=== PATIENT | male | born 1960 | race Caucasian/White ===

== ENCOUNTER 2017-10-08 19:19 | Inpatient (IN) ==
--- NOTE | 2017-10-08 20:37 | Emergency Department Note ---
Disposition Clinical Impression: Abdominal pain Qualifiers: Abdominal location: generalized Qualified Code(s): R10.84 - Generalized abdominal pain Disposition: Still a Patient Condition: Fair Referrals: Katharina Hoover MD [Primary Care Provider] - Forms: ED Satisfaction Letter, Work/School Release General Adult HPI - General Chief complaint: ED Abdominal Pain Stated complaint: abd pain Time Seen by Provider: 10/08/17 20:11 Source: patient Mode of arrival: ambulatory Limitations: no limitations Nursing Notes Reviewed: Yes Vital Signs Reviewed: Yes - History of Present Illness HPI Narrative: 57-year-old male with significant past medical history of multiple acute pancreatitis episodes presenting to the emergency Department chief complaint epigastric pain. Patient states 4 days ago he drink a large amount of alcohol. Afterwards he had severe epigastric pain that radiated up into his throat and down into his abdomen. He had multiple episodes of nonbloody nonbilious vomiting. Patient has not had vomiting in the past 48 hours. He states his abdominal pain is progressively getting worse. He was concerned because he has had pancreatitis in the past and this was what felt like previously. Patient has not been able to eat or drink anything due to pain. He has had decreased urination throughout the day as well. Patient denies any chest pain or shortness of breath. Denies any fevers at home or sick contacts. Pain Scale: 10 - Related Data Previous Rx's Medication Instructions Recorded Acetaminophen w/Cod 300-30 mg 1 each PO Q6HR PRN #10 tablet 12/12/16 [Tylenol w/Codeine #3] Amoxicillin 875 mg PO BID #20 tablet 12/12/16 Ibuprofen [Motrin] 600 mg PO Q6HR PRN #20 tab 12/12/16 Allergies Allergy/AdvReac Type Severity Reaction Status Date / Time No Known Allergies Allergy Verified 11/23/16 09:13 All systems ED: reviewed and negative except as stated. Gastrointestinal: Reports: abdominal pain, nausea, vomiting Past Medical History - Past Medical History Attestation: Yes The following information was validated with the patient. Medical history: Reports: GERD Surgical history: Reports: herniorrhaphy Psychiatric history: Reports: anxiety, depression - Social History Smoking Status: Current some day smoker Smokeless Tobacco Status: No Alcohol use: Reports: occasionally, heavy Drug use: Reports: marijuana Physical Exam - General Limitations: no limitations General appearance: alert, in no apparent distress - Head Head exam: atraumatic, normocephalic, normal inspection - Eye Eye exam: Present: normal appearance. Absent: scleral icterus, conjunctival injection - ENT ENT exam: mucous membranes dry - Neck Neck exam: Present: normal inspection, full ROM. Absent: tenderness, meningismus - Chest Chest inspection: Present: normal inspection, symmetric chest wall rise. Absent : tenderness, rash - Respiratory Respiratory exam: Present: normal lung sounds bilaterally. Absent: respiratory distress, wheezes - Cardiovascular Cardiovascular exam: Present: normal rhythm, tachycardia, normal heart sounds - Abdominal Exam Abdominal exam: Present: soft, tenderness. Absent: distention, guarding, rebound, rigidity Abdominal tenderness: Present: epigastrium, diffuse, moderate - Extremities Exam Extremities exam: Present: normal inspection, full ROM - Neurological Exam Neurological exam: Present: alert, oriented X3 - Psychiatric Psychiatric exam: Present: normal affect, normal mood - Skin Skin exam: Present: warm, intact Course Course Narrative: 57-year-old male presenting to the emergency department For epigastric pain. Upon presentation patient is tachycardic but otherwise vital signs stable. Patient is extremely dry on exam. Patient has moderate to severe abdominal exam diffuse but mostly located in the epigastric region. Concern for pancreatitis or other intra-abdominal pathology at this time. We will provide the patient with a liter of fluid, laboratory analysis including CBC, CMP and lipase along with a CT of the abdomen and pelvis. Patient is alert and oriented 3 in the room. Patient's disposition pending results. Patient agrees with this plan. We will plan to sign the patient out to Dr. Torrez Vital Signs Temperature 97.6 F 10/08/17 19:27 Pulse Rate 120 10/08/17 19:27 Respiratory Rate 18 10/08/17 19:27 Blood Pressure 106/65 10/08/17 19:27 O2 Sat by Pulse Oximetry 99 10/08/17 19:27 Temperature 97.6 F 10/08/17 19:27 Pulse Rate 120 10/08/17 19:27 Respiratory Rate 18 10/08/17 19:27 Blood Pressure 106/65 10/08/17 19:27 O2 Sat by Pulse Oximetry 99 10/08/17 19:27 Oxygen Delivery Oxygen Delivery Room Air Medical Decision Making - Lab Data Result diagrams: 10/08/17 20:49 Lab Results 10/08/17 Range/Units 20:49 WBC 13.1 H (4.3-11.1) K/mcL RBC 6.52 H (4.19-5.50) M/mcL Hgb 20.3 H (12.9-16.9) g/dL Hct 58.5 H (37.5-50.1) % MCV 89.7 (83.0-100.0) fL MCH 31.1 (28.0-33.3) pg MCHC 34.7 (31.6-35.5) g/dL RDW 12.4 (11.5-14.5) % Plt Count 362 (140-400) K/mcL MPV 9.5 (9.4-12.4) fL Immature Gran % 0.5 (0-4) % Seg Neutrophils % 72.9 % Lymphocytes % 17.8 % Monocytes % 8.4 % Eosinophils % 0.1 % Basophils % 0.3 % Neutrophils # 9.5 H (1.6-8.9) K/mcL Lymphocytes # 2.3 (0.6-4.6) K/mcL Monocytes # 1.1 (0.0-1.3) K/mcL Eosinophils # 0.0 (0.0-0.6) K/mcL Basophils # 0.0 (0.0-0.2) K/mcL
--- NOTE | 2017-10-08 20:37 | Emergency Department Note ---
Disposition Clinical Impression: Abdominal pain Qualifiers: Abdominal location: generalized Qualified Code(s): R10.84 - Generalized abdominal pain Disposition: Still a Patient Condition: Fair Referrals: Kathairna Hoover MD [Primary Care Provider] - Time of Disposition: 20:37 General Adult HPI - General Chief complaint: ED Abdominal Pain Stated complaint: abd pain Time Seen by Provider: 10/08/17 20:11 Source: patient Limitations: no limitations - History of Present Illness Pain Scale: 10 - Related Data Previous Rx's Medication Instructions Recorded Acetaminophen w/Cod 300-30 mg 1 each PO Q6HR PRN #10 tablet 12/12/16 [Tylenol w/Codeine #3] Amoxicillin 875 mg PO BID #20 tablet 12/12/16 Ibuprofen [Motrin] 600 mg PO Q6HR PRN #20 tab 12/12/16 Allergies Allergy/AdvReac Type Severity Reaction Status Date / Time No Known Allergies Allergy Verified 11/23/16 09:13 Past Medical History - Past Medical History Medical history: Reports: GERD Surgical history: Reports: herniorrhaphy Psychiatric history: Reports: anxiety, depression - Social History Smoking Status: Current some day smoker Smokeless Tobacco Status: No Alcohol use: Reports: occasionally, heavy Drug use: Reports: marijuana Physical Exam - General Limitations: no limitations General appearance: alert Course - Reevaluation(s) Reevaluation #1: Attestation note I examined this patient and my medical decision-making was reviewed with the [employer]/PA/Advanced Practice Nurse/Resident Physician. I agree with the documented findings, disposition and treatment plan as described except to the extent set forth below. ED attending: Patient's emergency medicine resident Dr. RAMON CARDONA. Please see copy of this note for H&P evaluation and management and ED disposition. We both had independent [id number] time in contact with this patient. Briefly: 57-year-old male presents with diffuse abdominal pelvic pain. Dehydrated tachycardic at 120 diffuse abdominal guarding but no rebound. Patient is afebrile. Labs IV fluid analgesics antiemetics and abdominal pelvic CT are pending. Patient will be signed out to the assuming ED attending Dr. Tyrel Torrez. Please see copy of his note for the remainder of the ED course. Patient signed out in stable condition at 2044 Time: 20:36 Vital Signs Temperature 97.6 F 10/08/17 19:27 Pulse Rate 120 10/08/17 19:27 Respiratory Rate 18 10/08/17 19:27 Blood Pressure 106/65 10/08/17 19:27 O2 Sat by Pulse Oximetry 99 10/08/17 19:27 Temperature 97.6 F 10/08/17 19:27 Pulse Rate 120 10/08/17 19:27 Respiratory Rate 18 10/08/17 19:27 Blood Pressure 106/65 10/08/17 19:27 O2 Sat by Pulse Oximetry 99 10/08/17 19:27 Oxygen Delivery Oxygen Delivery Room Air
[2017-10-08] MEDS ORDERED: Ondansetron 4 MG/2 ML VIAL IVP ONE (20:44)
[2017-10-08] MEDS ORDERED: *HR* FentaNYL (PF) 100 MCG/2 ML VIAL IVP ONE ×2 (20:44→23:15)
[2017-10-08] MEDS ORDERED: 0.9 % Sodium Chloride 1,000 ML IVC ONE ×2 (20:44→23:15)
[2017-10-08 21:00] LABS: Basophils % 0.3 %; Eosinophils % 0.1 %; Hemoglobin 20.3 g/dL (12.9-16.9); Immature Granulocytes % 0.5 % (0-4); Lymphocytes # 2.3 K/mcL (0.6-4.6); Lymphocytes % 17.8 %; Mean Corpuscular HGB Conc 34.7 g/dL (31.6-35.5); Mean Corpuscular Hemoglobin 31.1 pg (28.0-33.3); Mean Corpuscular Volume 89.7 fL (83.0-100.0); Mean Platelet Volume 9.5 fL (9.4-12.4); Monocytes # 1.1 K/mcL (0.0-1.3); Monocytes % 8.4 %; Neutrophils # 9.5 K/mcL (1.6-8.9); Platelet Count 362 K/mcL (140-400); Red Blood Count 6.52 M/mcL (4.19-5.50); Red Cell Distribution Width 12.4 % (11.5-14.5); Segmented Neutrophils % 72.9 %
[2017-10-08 21:01] LABS: Hematocrit 58.5 % (37.5-50.1)
[2017-10-08 21:26] LABS: Albumin 5.6 g/dL (3.5-5.7); Albumin/Globulin Ratio 1.4 (1.1-2.2); Bilirubin,Direct 0.2 mg/dL (0.0-0.2); Bilirubin,Indirect 0.7 mg/dL (0.0-1.2); Bilirubin,Total 0.9 mg/dL (0.3-1.0); Calcium 11.3 mg/dL (8.6-10.3); Globulin 3.9 g/dL (2.4-3.5); Potassium 3.8 mEq/L (3.5-5.1); Total Protein 9.5 g/dL (6.4-8.9)
--- NOTE | 2017-10-09 00:23 | Internal Med History&Physical ---
Date of Encounter: 10/09/17 Time of Encounter: 00:21 Assessment and Plan (1) JAMEEL (acute kidney injury) Current visit: No Status: Resolved IVF hydration dehydration related to GI symptoms trend Cr (2) Hyponatremia Current visit: Yes Status: Acute related to dehydration IVF trend Na (3) Abdominal pain Current visit: Yes Status: Acute no evidence of pancreatitis possible gastoenteritis vs. gastritis will empirically treat for UTI Qualifiers: Abdominal location: generalized Qualified Code(s): R10.84 - Generalized abdominal pain (4) Alcoholism in recovery Current visit: No Status: Chronic CIWA protocol Internal Medicine - H&P: HPI Chief complaint: Abdo pain History of present illness: Mr. Fox is a 57 year old male history of alcoholism in recovery, history of alcohol-induced pancreatitis, who presents with 4 days history of abdominal pain with anorexia. Found to be in acute kidney injury. He developed epigastric pain with radiation down inferiorly to the abdomen, 6 out of 10, associated with diaphoresis and fever low-grade, sharp in character , anorexia has not been eating or drinking too much, associated with 2 day history of nausea and emesis, frequency 7-10 times daily that is bilious in character. He denies any diarrhea He used to have an history of alcoholism and has cut down his alcohol intake. He denies any withdrawal effects when he stops using alcohol. He currently drinks about 4 times a month each with 3-4 glasses of Coke with whiskey. He reports drinking [address]/CT abd pelvis wo no iv no oral IMPRESSION: No acute process demonstrated Past Med Surg Social Fam HX - Past Medical History Medical history: GERD Psychiatric history: anxiety, depression - Past Surgical History Surgical History: herniorrhaphy - Social History Smoking Status: Current some day smoker Smokeless Tobacco Status: No Alcohol use: occasionally, heavy Drug use: marijuana - Family History Father Living Status: Hx Family Cancer: Yes (Brain) Mother Living Status: Still Living Hx Family GI Disorders: No Internal Medicine - H&P: Meds Acetaminophen w/Cod 300-30 mg [Tylenol w/Codeine #3] 1 each PO Q6HR PRN #10 tablet 12/12/16 [Rx] Amoxicillin 875 mg PO BID #20 tablet 12/12/16 [Rx] Ibuprofen [Motrin] 600 mg PO Q6HR PRN #20 tab 12/12/16 [Rx] 3 Allergy/AdvReac Type Severity Reaction Status Date / Time No Known Allergies Allergy Verified 11/23/16 09:13 All Systems PM: A 10-system review of systems was performed and is negative for pertinent findings except as documented above in the HPI. Review of systems: ROS 14 point review of systems reviewed as best as possible given presentation. Pertinent positive or negative as per HPI or otherwise reviewed as negative - Constitutional Vitals: Temp Pulse Resp BP Pulse Ox 97.6 F 120 18 106/65 99 10/08/17 19:27 10/08/17 19:27 10/08/17 19:27 10/08/17 19:27 10/08/17 19:27 Exam: General - AAO x 3 Psych - Appropriate affect/speech. No agitation Eyes - AURELIO. Eye lids intact. No scleral icterus Neuro - No gross peripheral or central neuro deficits on inspection Heart - Sinus. RRR. S1 and S2 present. No added HS/murmurs appreciated. No elevated JVD appreciated. Lung - Adequate air entry b/l, No crackles/wheezes appreciated GI - abdominal discomfort. Soft, non-tender. No guarding or rigidity. No hepatosplenomegaly/ascites. BS+ - No CVA/suprapubic tenderness or palpable bladder distension Skin - Intact. No rash/petechiae/ecchymosis. Warm extremities MSK - Joints with normal ROM. No joint swellings Internal Med - H&P Results - Labs CBC & Chem 7: 10/08/17 20:49 10/08/17 20:49
[2017-10-09] MEDS ORDERED: Naloxone 0.4 MG/ML INJ IVP PRN (00:29)
[2017-10-09] MEDS ORDERED: *HR* Acetaminophen w/Cod 300-30 mg 1 TAB TABLET PO PRN (00:29)
[2017-10-09] MEDS ORDERED: Ibuprofen 600 MG TABLET PO PRN (00:29)
[2017-10-09] MEDS ORDERED: Ondansetron 4 MG/2 ML VIAL IVP PRN (00:31)
[2017-10-09] MEDS: 0.9 % Sodium Chloride 1,000 ML IVC SCH ×4 (01:58→20:13)
[2017-10-09] MEDS: Prochlorperazine 10 MG/2 ML VIAL IVP PRN ×3 (01:59→14:54)
[2017-10-09] MEDS: Pantoprazole 40 MG VIAL IVP SCH ×3 (02:08→20:13)
[2017-10-09] MEDS ORDERED: *HR* FentaNYL (PF) 100 MCG/2 ML VIAL IVP ONE (02:33)
[2017-10-09] MEDS ORDERED: *HR* FentaNYL (PF) 100 MCG/2 ML VIAL ONE (02:36)
[2017-10-09 05:57] LABS: Basophils % 0.4 %; Eosinophils % 0.3 %; Hematocrit 46.5 % (37.5-50.1); Immature Granulocytes % 0.4 % (0-4); Lymphocytes # 2.7 K/mcL (0.6-4.6); Lymphocytes % 27.4 %; Mean Corpuscular HGB Conc 34.4 g/dL (31.6-35.5); Mean Corpuscular Hemoglobin 31.2 pg (28.0-33.3); Mean Corpuscular Volume 90.6 fL (83.0-100.0); Mean Platelet Volume 9.6 fL (9.4-12.4); Monocytes # 0.9 K/mcL (0.0-1.3); Monocytes % 9.5 %; Platelet Count 281 K/mcL (140-400); Red Blood Count 5.13 M/mcL (4.19-5.50); Red Cell Distribution Width 12.6 % (11.5-14.5)
[2017-10-09] MEDS ORDERED: *HR* Enoxaparin 30 MG/0.3 ML SYRINGE SQ SCH (06:00)
[2017-10-09 06:16] LABS: Calcium 8.8 mg/dL (8.6-10.3); Potassium 4.1 mEq/L (3.5-5.1)
[2017-10-09 06:41] LABS: Bilirubin,Urine Negative (Negative); Blood,Urine Negative (Negative); Clarity,Urine Clear (Clear); Color,Urine Yellow (Yellow); Glucose,Urine (UA) Normal (Normal); Ketones,Urine 15 mg/dL (Negative); Leukocyte Esterase,Urine Negative (Negative); Nitrite,Urine Negative (Negative); Protein,Urine Negative (Neg-Trace); Specific Gravity,Urine 1.025 (1.010-1.025); Urobilinogen,Urine Normal (Normal)
[2017-10-09] MEDS: Sucralfate 1 GM TABLET PO SCH ×4 (08:30→20:13)
--- NOTE | 2017-10-09 10:13 | Internal Med Progress Note ---
Date of Encounter: 10/09/17 Time of Encounter: 10:11 - Assessment and plan (1) JAMEEL (acute kidney injury) Current Visit: No Status: Resolved Assessment and plan: Acute renal failure secondary to severe dehydration/provoked by alcohol intake Continue IV fluids Monitor creatinine (2) Abdominal pain Current Visit: Yes Status: Acute Assessment and plan: Epigastric pain, consider possible gastritis Continue Protonix IV Advance diet CT of the abdomen did not show any acute findings Qualifiers: Abdominal location: generalized Qualified Code(s): R10.84 - Generalized abdominal pain (3) Hyponatremia Current Visit: Yes Status: Acute Assessment and plan: Secondary to poor oral intake Improving (4) Dehydration, moderate Current Visit: No Status: Acute (5) Alcoholism in recovery Current Visit: No Status: Chronic Assessment and plan: Binge drinks (6) Tobacco abuse Current Visit: Yes Status: Acute Assessment and plan: Smoking cessation counseling, does not want to have a nicotine patch - Subjective Interval history: Epigastric pain has improved, denies any chest pain or shortness of breath, no dysuria or diarrhea, no fevers - Constitutional Vitals: Temp Pulse Resp BP Pulse Ox 98.2 F 84 16 109/68 96 10/09/17 07:44 10/09/17 07:44 10/09/17 07:44 10/09/17 07:44 10/09/17 07:44 General appearance: Present: A&O X 3 - Head Head exam: Present: atraumatic, normocephalic - Eye Eye exam: Present: PERRL, conjuntiva pink, sclera anicteric Pupils: Present: PERRL - Neck Neck exam general surgery: Present: supple, trachea midline. Absent: lymphadenopathy - Respiratory Respiratory exam: Present: CTAB, rales (Diffuse crackles and rhonchi), rhonchi. Absent: accessory muscle use, wheezes - Cardiovascular Cardiovascular exam: Present: RRR, +S1, +S2. Absent: diastolic murmur, gallop, rubs, systolic murmur - GI/Abdominal GI/Abdominal exam: Present: normal bowel sounds, soft, no peritoneal signs. Absent: distended, tenderness - Extremities Exam Extremities exam: Present: warm, radial pulses palpable and symmetrical. Absent : calf tenderness, cyanotic, pedal edema - Neurological Exam Neurological exam: Present: CN II-XII intact, oriented X3, no focal deficits. Absent: pronater drift, facial droop, speech deficit - Skin Skin exam: Present: dry, intact Internal Medicine: Result - Labs CBC & Chem 7: 10/09/17 05:44 10/09/17 05:44 Labs: Short CBC 10/09/17 Range/Units 05:44 WBC 9.7 (4.3-11.1) K/mcL Hgb 16.0 D (12.9-16.9) g/dL Hct 46.5 (37.5-50.1) % Plt Count 281 (140-400) K/mcL Neutrophils # 6.0 (1.6-8.9) K/mcL BMP 10/09/17 05:44 Sodium 131 L Potassium 4.1 Chloride 100 Carbon Dioxide 26 BUN 41 H Creatinine 1.62 H Glucose 92 Calcium 8.8 Urine 10/09/17 Range/Units 06:25 Urine Color Yellow (Yellow) Urine Clarity Clear (Clear) Urine pH 6.0 (5.0-8.0) pH Units Ur Specific [place] 1.025 (1.010-1.025) Urine Protein Negative (Neg-Trace) mg/dL Urine Glucose (UA) Normal (Normal) mg/dL Consult Discharge Plan - Plan Referrals: Katharina Hoover MD [Primary Care Provider] -
[2017-10-10] MEDS: Prochlorperazine 10 MG/2 ML VIAL IVP PRN (04:09)
[2017-10-10] MEDS ORDERED: *HR* Enoxaparin 40 MG/0.4 ML SYRINGE SQ SCH (06:00)
[2017-10-10 06:03] LABS: BUN/Creatinine Ratio 19 (6-26); Blood Urea Nitrogen 20 mg/dL (6-20); Calcium 8.2 mg/dL (8.6-10.3); Carbon Dioxide 24 mEq/L (23-29); Chloride 105 mEq/L (98-107); Glucose 91 mg/dL (70-105); Osmolality,Calculated 276 (280-300); Potassium 3.5 mEq/L (3.5-5.1); Sodium 132 mEq/L (136-145); eGFR For African Americans > 60 (> 60); eGFR For Non-African Americans > 60 (> 60)
[2017-10-10] MEDS: Sucralfate 1 GM TABLET PO SCH (06:24)
[2017-10-10 06:50] VITALS: BP 127/64
[2017-10-10] MEDS: Pantoprazole 40 MG VIAL IVP SCH (07:32)
[2017-10-10] MEDS: 0.9 % Sodium Chloride 1,000 ML IVC SCH (07:32)
--- NOTE | 2017-10-10 07:55 | Discharge Summary ---
Orders not resulted at time of discharge: Pending orders 10/11/17 04:00 Basic Metabolic Panel AM 0400 Date of Encounter: 10/10/17 Time of Encounter: 07:52 - Discharge Diagnosis (1) JAMEEL (acute kidney injury) Priority: Primary Status: Resolved Comments: Acute renal failure secondary to severe dehydration/provoked by alcohol intake (2) Abdominal pain Priority: Secondary Status: Acute Comments: likely secondary to acute gastritis from alcohol Qualifiers: Abdominal location: generalized Qualified Code(s): R10.84 - Generalized abdominal pain (3) Hyponatremia Priority: Secondary Status: Acute (4) Dehydration, moderate Priority: Secondary Status: Acute (5) Alcoholism in recovery Priority: Secondary Status: Chronic (6) Tobacco abuse Priority: Secondary Status: Acute Hospital course: Mr. Fox is a 57 year old male with a past medical history of alcohol abuse, tobacco abuse, GERD, anxiety, depression, alcohol induced pancreatitis, who presented with 4 days history of abdominal pain with anorexia. Found to be in acute kidney injury. Creatinine was 2.57, he was severely dehydrated. He developed epigastric pain with radiation down inferiorly to the abdomen, 6 out of 10, associated with diaphoresis and fever low-grade, sharp in character , anorexia has not been eating or drinking too much, associated with 2 day history of nausea and emesis, frequency 7-10 times daily that is bilious in character. He denied any diarrhea He used to have an history of alcoholism and has cut down his alcohol intake. He denied any withdrawal effects when he stops using alcohol. He currently drinks about 4 times a month each with 3-4 glasses of Coke with whiskey. He reports drinking 4 days ago. The patient was started on IV fluids and his creatinine progressively improved, today is 1.07. He was given Protonix IV as he was complaining of severe epigastric pain/burning. Sodium was 127, today is 132. The patient feels back to normal and prefers to be discharged. Calcium upon admission was elevated at 11.3, today's 8.2. Time spent discussing smoking cessation with patient: 3 to 10 minutes - Time Spent with Patient Total time spent providing and/or coordinating discharge services: Greater than 30 minutes (40 min) - Discharge Medications Prescriptions: Omeprazole [PriLOSEC] 40 mg PO DAILY #30 cap Home Medications: Acetaminophen w/Cod 300-30 mg [Tylenol w/Codeine #3] 1 each PO Q6HR PRN #10 tablet 12/12/16 [Rx] Omeprazole [PriLOSEC] 40 mg PO DAILY #30 cap 10/10/17 [Rx] Allergies/Adverse Reactions: 3 Allergy/AdvReac Type Severity Reaction Status Date / Time No Known Allergies Allergy Verified 11/23/16 09:13 Date of admission: 10/09/17 00:29 Primary care physician: Katharina Hoover - Constitutional Vitals: Temp Pulse Resp BP Pulse Ox 98.1 F 77 16 127/64 97 10/10/17 06:46 10/10/17 06:46 10/10/17 06:46 10/10/17 06:46 10/10/17 06:46 General appearance: Present: A&O X 3 - Head Head exam: Present: atraumatic, normocephalic - Eye Eye exam: Present: PERRL, conjuntiva pink, sclera anicteric Pupils: Present: PERRL - Neck Neck exam general surgery: Present: supple, trachea midline. Absent: lymphadenopathy - Respiratory Respiratory exam: Present: CTAB. Absent: accessory muscle use, rales, rhonchi, wheezes - Cardiovascular Cardiovascular exam: Present: RRR, +S1, +S2. Absent: diastolic murmur, gallop, rubs, systolic murmur - GI/Abdominal GI/Abdominal exam: Present: normal bowel sounds, soft, no peritoneal signs. Absent: distended, tenderness - Extremities Exam Extremities exam: Present: warm, radial pulses palpable and symmetrical. Absent : calf tenderness, cyanotic, pedal edema - Neurological Exam Neurological exam: Present: CN II-XII intact, oriented X3, no focal deficits. Absent: pronater drift, facial droop, speech deficit - Skin Skin exam: Present: dry, intact - Patient Status Disposition: Home, Self-Care Condition: Good Overall status at discharge: patient is back to baseline - Discharge Instructions Follow Up With: Katharina Hoover MD [Primary Care Provider] - Additional Instructions: Follow-up with primary care physician within the next 2 weeks. Take omeprazole 40 mg daily. Avoid alcohol intake. Stop smoking - Diet and Activity Activity: increase activity as tolerated Diet: regular diet
== END 2017-10-10 10:18 | disposition home or self-care (01) | DRG 469 ==
LOC: EMEROO 19:19 → 3BNU 19:19
PROVIDERS: ADMIT Internal Medicine Hematology & Oncology; ATTEND Internal Medicine